=== PATIENT | male | born 1960 | race Caucasian/White ===

== ENCOUNTER 2024-05-23 08:32 | Inpatient (IN) | payer OTHER, SELFPAY ==
[2024-05-23] VITALS (14 sets, daily range): BP systolic 132–193; BP diastolic 70–90; BMI 28.8
--- NOTE | 2024-05-23 07:04 | ED.GENMED ---
History of Present Illness
General
Chief Complaint: Chest Pain
Source: patient and spouse
Exam Limitations: clinical condition
Time Seen by Provider: 05/23/24 07:03
Nursing documentation reviewed up to this point in time: agreed with
History of Present Illness
History of Present Illness:
63-year-old male with no reported chronic issues presents to the ER for evaluation of chest pain. Patient reports that he woke up around midnight with what he thought was heartburn after having pizza last night; he says he took some Tums and that
seemed to help and he went back to bed. He says that around 5 AM he woke up once again with chest pain this time associated with sweatiness that was not improving; gave him full dose aspirin and brought him to the emergency room. He denies
any associated shortness of breath, nausea, vomiting. He denies any abdominal pain. He denies any other complaints. He denies any known cardiac history and he says he has not seen a repairer controller tester for any reason.
Review of Systems
Review of Systems
All Other Systems: ROS reviewed and negative except as documented in HPI and ROS
Respiratory: Denies trouble breathing
Cardiac: Reports chest pain and diaphoresis
ABD/GI: Denies nausea or vomiting
Musculoskeletal: Denies edema
Neurological: Denies dizzy or headache
Phy Exam
Physical Exam
Physical Exam:
General: Awake, alert, oriented x3; no acute distress
Head: Normocephalic, atraumatic
Eyes: Conjunctiva normal
Throat: Airway intact, handling secretions
Neck: Trachea midline, no JVD
Lungs: Clear to auscultation bilaterally, no wheezing, rales, rhonchi
Heart: Regular rate and rhythm, no murmurs, gallops, or rubs
Abd: Soft, non distended, nontender
Neuro: No gross deficit
Extremities: No edema in extremities, equal pulses in all extremities
Scores
Heart Failure Risk
Heart Failure Risk Score: Not Applicable
Heart Score for Chest Pain Patients
STEMI patient?: Yes
Withdrawal Assessment of Alcohol
Withdrawal Assessment Completed?: Not applicable
Course
Orders/Labs/Results
Orders:
Orders
05/23/24 06:54
Electrocardiogram (*1) Urgent
Reason for Study: Chest Pain
EKG- Treatment ONCE
05/23/24 07:04
Complete Blood Count/With Diff Urgent
Comprehensive Metabolic Panel Urgent
PTT Urgent
Prothrombin Time Urgent
Troponin I Urgent
MDM/Problems Addressed
Differential Diagnosis Includes:
STEMI
MDM/Problems Addressed:
63-year-old male presents with chest pain initially had transient pain at midnight and returned at 5 AM. His EKG in triage shows inferior wall ST elevation NM. Medical Assisting Program Director activated. Case discussed with interventional cardiology who came immediately
to the bedside. Plan for cardiac catheterization. He was given aspirin prehospital; added Brilinta and heparin. Treat with nitroglycerin for hypertension and continued chest pain. Handoff to cath team.
*Pulse Oximetry
Patient hypoxic: no
*EKG
Interpreted by ED Provider?: Yes
Heart Rate: 64
Rate: normal
Rhythm: sinus
[place]: normal axis
Interval: normal interval
QRS Pattern: normal QRS
Ischemia: ST elevation
*Critical Care Note
Total Time (30-74mins, 75-104mins- exclusive of procedures): Not Applicable
Data Reviewed
Source: patient and spouse
Patient Management
Discussion with other providers: Donor Recruitment Manager (Discussed with interventional cardiology)
ED Attending Note
-
Portions of this chart may have been created with voice recognition software.� Occasional wrong word or��sound alike� substitutions may have occurred due to the inherent limitations of voice recognition software.
Discharge Plan
Departure
Patient Disposition: Admit
Date of Disposition: 05/23/24
Time of Disposition: 07:11
Admit to doctor: Srinivas
Presentation/result/management discussed w/ accepting MD/DO: Cardiology
Discharge Problem:
ST elevation (STEMI) myocardial infarction
Prescriptions:
No Action
No Current Medications
0
Interventions
Interventions:
*Risk Screen - Suicide Last Done: 05/23/24 07:04
*Neglect/Abuse Screening Last Done: 05/23/24 07:04
*ED COVID-19 Vaccine History Last Done: 05/23/24 07:04
Discharge Date and Time
Print Language: PERSIAN
[2024-05-23 07:28] LABS: INR 0.96; PT 13.1 Sec (11.4-14.6)
[2024-05-23 07:29] LABS: APTT 27.2 Sec (23.4-35.0)
[2024-05-23 07:32] LABS: ALT (SGPT) 24 U/L (0-50); AST (SGOT) 24 U/L (17-59); Albumin 4.3 g/dl (3.5-5.0); Alkaline Phosphatase 141 U/L (38-126); Blood Urea Nitrogen 16 mg/dl (9-20); Calcium 10.3 mg/dl (8.4-10.2); Carbon Dioxide 32 mmol/L (22-30); Chloride 100 mmol/L (98-107); Estimated Creatinine Clearance 84 ml/min; Glucose 159 mg/dl (70-99); Potassium 4.5 mmol/L (3.5-5.1); Sodium 138 mmol/L (135-145); Total Bilirubin 0.7 mg/dl (0.2-1.3); eGFR > 60.00
--- NOTE | 2024-05-23 07:40 | HPS.HSE ---
Family Physician
-
PCP: Monie Dodd,
CDY: None prior to admission
Chief Complaint
-
chest pain
History of Present Illness
63 y/o white male, no prior cardiac history, HLD but reports statin intolerance in the past and takes red yeast rice daily, no FH CAD, former tobacco abuse, weekly alcohol intake.
New onset chest pain/burning with indigestion last night around midnight, some relief with TUMS. Woke at 5AM with recurrent chest pain associated with diaphoresis. Took 324mg aspirin at home and came to ER.
Initial EKG with inferior ST elevations, first troponin negative. Given ticagrelor 180mg and heparin 5000u and brought emergently to blood bank laboratory technologist.
[facility] with distal RCA occlusion, s/p angioplasty with TIFFANI. Currently chest pain free.
Medical History
Past Medical History
Past Medical History: Reports Hypercholesterolemia (statin intolerant) and Other
Additional Past Medical History:
Prostate Cancer s/p prostatectomy (2020 at [facility]), dislocated shoulder joint/incomplete tear of right rotator cuff - managed with steroid injections and PT(2021), left knee osteoarthritis, left knee Wolff's Cyst
Past Surgical History: Reports Orthopedic (Right shoulder surgery as a child) and Urological (vasectomy)
Additional Past Surgical History:
prostatectomy (2021)
Social History
Tobacco: Non-smoker
Alcohol: Occasional (2-3 beers on the weekend)
Drug: None
Personal:
Living: With Family
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
Family History
Family History: Not pertinent
Allergies / Home Medications
Allergies reflects when Allergies were last updated in [facility].
Home Medications with original date entered in [facility]
Allergy/Medication List:
Allergies
Allergy/AdvReac Type Severity Reaction Status Date / Time
No Known Allergies Allergy Unverified 05/23/24 07:03
Home Medications
�Medication �Instructions �Recorded
Red Yeast Rice 1 tablet po daily 05/23/24
Review of Systems
-
History Source: Patient
A 12 point ROS was completed and negative except as noted: Yes
Physical Exam
Vital Signs
Vital Signs
Temp Pulse Resp BP Pulse Ox
98.2 F 60 16 193/90 98
05/23/24 07:04 05/23/24 07:04 05/23/24 07:04 05/23/24 07:10 05/23/24 07:04
Physical Exam
General: Well Developed and Other (deferred d/t urgent nature of MA/Cath)
Laboratory Results
-
05/23/24 07:08
Laboratory Results
PT 13.1 Sec (11.4-14.6) 05/23/24 07:08
INR 0.96 05/23/24 07:08
APTT 27.2 Sec (23.4-35.0) 05/23/24 07:08
Total Bilirubin 0.7 mg/dl (0.2-1.3) 05/23/24 07:08
AST 24 U/L (17-59) 05/23/24 07:08
ALT 24 U/L (0-50) 05/23/24 07:08
Alkaline Phosphatase 141 U/L (38-126) H 05/23/24 07:08
Laboratory Tests
05/23/24
07:08
Troponin I < 0.012
Data Reviewed
-
Medical Tests (Nuc Med, Echo, EKG etc): Image Personally Visualized and interpreted, Report Reviewed by me and Discussed with Physician
Lab Data: Labs Reviewed by me and Discussed with Physician
Old Records: Reviewed
Impression/Plan
-
PCP: Monie Dodd DO
CDY: None prior to admission
63 y/o white male, no prior cardiac history, HLD but reports statin intolerance in the past and takes red yeast rice daily, Prostate CA s/p prostatectomy (2020), no FH CAD, former tobacco abuse, weekly alcohol intake.
New onset chest pain/burning with indigestion last night around midnight, some relief with TUMS. Woke at 5AM with recurrent chest pain associated with diaphoresis. Took 324mg aspirin at home and came to ER.
Initial EKG with inferior ST elevations, first troponin negative. Given ticagrelor 180mg and heparin 5000u and brought emergently to blood bank laboratory technologist.
[facility] with distal RCA occlusion, s/p angioplasty with TIFFANI. Currently chest pain free.
IMPRESSION/PLAN:
Acute Inferior STEMI
s/p distal RCA PCI
admit ivu, monitor on tele
first troponin negative- trend to peak
echo today
DAPT w/asa, ticagrelor- CM to check cost
some bradycardia/slowing intra-cath- will hold on BB and monitor on tele for now
new start lisinopril 2.5mg/daily
cardiac rehab
followup at [facility] at discharge
HLD- reports prior history with statin intolerance
repeat lipid profile
will hold off on statin for now, consider starting repatha- will need prior auth through cardiology office
Elevated glucose- 159 this morning on chemistry
check HgbA1C today
[2024-05-23 07:41] LABS: Troponin I < 0.012 ng/ml
[2024-05-23 07:43] LABS: ACT-LR - POC 295 Seconds (116-155)
[2024-05-23 07:43] LABS: % Basophils 0.7 % (0-2); % Eosinophils 1.9 % (0-6); % Immature Granulocytes 0.6 % (0-0.5); % Monocytes 7.4 % (1.7-9.3); % Neutrophils 72.4 % (42.2-75.2); Absolute Basophils 0.1 10^3/uL (0-0.2); Absolute Eosinophils 0.2 10^3/uL (0-0.7); Absolute Immature Granulocytes 0.1 10^3/uL (0-0.05); Absolute Lymphocytes 1.6 10^3/uL (1.2-3.4); Absolute Monocytes 0.7 10^3/uL (0.1-0.6); Absolute Neutrophils 6.8 10^3/uL (1.4-6.5); Hematocrit 45.6 % (39.0-52.0); Hemoglobin 15.5 g/dL (13.0-18.0); Mean Corpuscular Hgb 29.9 pg (27.0-31.0); Mean Corpuscular Volume 87.9 fL (80.0-94.0); Mean Platelet Volume 9.6 fL (7.4-10.4); Nucleated Red Blood Cells % 0 % (-); Platelet Count 218 10^3/uL (130-400); Red Blood Cell Count 5.19 10^6/uL (4.70-6.10); Red Cell Dist. Width 12.4 % (11.5-14.5); White Blood Cell Count 9.4 10^3/uL (4.8-10.8)
[2024-05-23 07:55] LABS: ACT-LR - POC 302 Seconds (116-155)
--- NOTE | 2024-05-23 08:39 | ITS.CL.ANGIO ---
Industrial Staff Nurse - Angioplasty
Angioplasty
Procedure Report:
CARDIAC CATHETERIZATION REPORT
Date of Procedure: 05/23/2024
Referring: Ronnie Rajput Jr., M.D.
INDICATION: Inferior ST elevation myocardial infarction.
PROCEDURE:
1. Left heart catheterization.
2. Coronary angiography.
3. Successful PCI of the distal RCA.
A total of 26 minutes of procedural/moderate sedation was utilized. An independent medical office technician was present to assist with and help manage the patient's level of consciousness and physiologic status.
ACCESS:
1. 6 Austrian right radial artery using a modified Seldinger technique.
CATHETERS:
1. 5 Austrian JR4.
2. 5 Austrian JL 3.5.
3. 6 Austrian JR4 guiding catheter.
HEMODYNAMIC DATA
Weight (kg): 90.7
AO (s/d/x, mmHg): 158/83/114
LV (s/x mmHg): 158/12
LEFT VENTRICULOGRAPHY: Not performed.
CORONARY ANGIOGRAPHY
Dominance: Right.
Left Main: Large size, bifurcating vessel. There is no coronary artery disease.
LAD: Normal size vessel giving rise to 1 significant diagonal. There is a 40% lesion in the mid LAD.
[place]amus: Congenitally absent.
Circumflex: Normal size, nondominant vessel giving rise to 1 significant obtuse marginal that arises very high on the circumflex and supplies majority of the lateral wall. There is a 50-60% lesion in the proximal margin of OM1.
RCA: Normal size, dominant vessel. There is an acute occlusion of the distal RCA.
INTERVENTION(S)
1. Successful PCI of the 100% distal RCA lesion (Medtronic [place] 3.0 x 22 TIFFANI, postdilated with a 3.0 NC balloon) with reduction in stenosis to 0%, restoring CROW-3 flow.
Narrative:
The decision was made to proceed with percutaneous coronary intervention. The diagnostic catheter was removed over a wire and a 6Fr JR4 guiding catheter was advanced to the aortic root and seated in the right coronary artery. Additional heparin was
given and a Power Turn Flex wire was advanced into the distal RCA, beyond the occlusion. The 100% distal RCA lesion was predilated with a 2.0 x 12 semi-compliant balloon to 12 leah. The semi-compliant balloon was removed and a Medtronic [place]
3.0 x 22 drug-eluting stent was advanced. The stent was deployed at 12 atmospheres. The stent balloon was removed. A 3.0 x 15 noncompliant balloon was advanced into the stent and the stent was postdilated to 14 atmospheres. Angiography was performed
in orthogonal views, confirming good stent expansion and an excellent angiographic result. The coronary wire was withdrawn and the guide was disengaged from the artery. The catheter was removed over a standard J-wire.
Closure Device: Vascular band.
Radiation (mGy): 798.6
DAP (cm2.Gy): 63.1390
Fluoroscopy time (minutes): 6.0
CONCLUSIONS
1. Right dominant circulation with a 40% lesion in the mid LAD, a 50-60% lesion in the proximal circumflex and an acute, 100% occlusion of the distal RCA, status post successful PCI (Medtronic [place] 3.0 x 22 TIFFANI, postdilated with a 3.0 NC
balloon) with reduction in stenosis to 0%, restoring CROW-3 flow.
2. Normal filling pressures (LVEDP = 12 mmHg at 90.7 kg).
RECOMMENDATIONS:
1. Expectant management after cardiac catheterization via right radial approach.
2. Limited weight bearing on the right wrist for one week.
3. Dual antiplatelet therapy with aspirin and ticagrelor for at least 12 months, followed by aspirin indefinitely.
4. OMT/GDMT as hemodynamics will tolerate.
5. Echocardiogram ordered and pending.
6. Repeat cardiac catheterization in 2 days for IFR assessment of the LAD and circumflex lesions.
7. Referral to cardiac rehab.
Copy to: Brad Feliciano M.D.
Solo Espino DO, FACC, FACP
[2024-05-23] MEDS: NSS 1000 IV (08:45)
[2024-05-23 09:05] LABS: Glycohemoglobin (HgbA1c) 5.8 % (4.0-5.6)
[2024-05-23] MEDS: LOW STRENGTH ASPIRIN PO (09:53)
--- NOTE | 2024-05-23 10:22 | CM ---
Addendum entered by Roselia Vega 05/23/24 10:53:
Telephone call to [facility] to see if they have it in stock. [facility] does not have Brilinta 90 mg po in stock. COOLER TENDER to send script to [facility] so they can order it. Met with Mr. Arriaga to review co-pay. He is agreeable to the
co-pay.
Original Note:
Reviewed chart. Met with and Mrs. Arriaga to review discharge plans. He states prior to admission he resides with his spouse and son in a two story home with three steps to enter. He states he has a full flight of steps to get to his bedroom.
He states he has a full bathroom on each level. He states prior to admission he was independent with ambulation. He states he does not have any DMEin the home. He states he has a prescription plan with [facility] [employer] and uses [facility].
Medical work -up in progress. The discharge plan is return home with his spouse and daughter when medically stable.
Telephone call to [facility] [employer], ([phone]) to check on co-pay for Brilinta 90 mg po bid . His co-pay for retail is $10.00 a month and for a 90 day supply via mail order is $10.00 a month. He has commercial insurance so he an use the $5.00
co-pay card. Placed the coupon in his red discharge folder.
--- NOTE | 2024-05-23 16:49 | PTCARENOTE ---
Pt has denied pain today when asked. Trop 32.8. Pt BP 168/82. Marie Randolph aware. Lisinopril 5 mg ordered and given.
[2024-05-23] MEDS: ZESTRIL 5 MG PO (16:54)
[2024-05-23] MEDS: LOVENOX 40 MG SC (16:55)
[2024-05-23] MEDS: BRILINTA 90 MG PO (19:54)
--- NOTE | 2024-05-23 23:56 | PTCARENOTE ---
pt received at change of shift, pt seen and assessed in room. pt aox3, tele reading NSR/SB. no complaints of pain at this time. R radial c/d/i. this rn discussed poc with pt and , both verbalize understanding. call piedra within reach. continuing
to monitor at this time.
[2024-05-24] VITALS (9 sets, daily range): BP systolic 123–142; BP diastolic 60–88; BMI 28.8
[2024-05-24 04:31] LABS: Hematocrit 40.9 % (39.0-52.0); Hemoglobin 14.2 g/dL (13.0-18.0); Mean Corp Hgb Conc. 34.7 g/dL (33.0-37.0); Mean Corpuscular Hgb 30.1 pg (27.0-31.0); Mean Corpuscular Volume 86.8 fL (80.0-94.0); Mean Platelet Volume 9.4 fL (7.4-10.4); Platelet Count 195 10^3/uL (130-400); Red Blood Cell Count 4.71 10^6/uL (4.70-6.10); Red Cell Dist. Width 12.5 % (11.5-14.5); White Blood Cell Count 9.8 10^3/uL (4.8-10.8)
[2024-05-24 04:58] LABS: Blood Urea Nitrogen 15 mg/dl (9-20); Calcium 9.5 mg/dl (8.4-10.2); Carbon Dioxide 26 mmol/L (22-30); Chloride 102 mmol/L (98-107); Estimated Creatinine Clearance 84 ml/min; Glucose 123 mg/dl (70-99); HDL Cholesterol 45 mg/dl; LDL Cholesterol, Calculated 128 mg/dl; Potassium 4.4 mmol/L (3.5-5.1); Sodium 135 mmol/L (135-145); Total Cholesterol 209 mg/dl (50-199); Triglyceride 180 mg/dl (10-149); Very Low Density Lipoprotein 36 mg/dl (0-30); eGFR > 60.00
[2024-05-24 05:46] LABS: Hepatitis C Antibody Negative (Negative)
[2024-05-24] MEDS: TOPROL XL 25 MG PO (07:43)
[2024-05-24] MEDS: LOW STRENGTH ASPIRIN 81 MG PO (07:44)
[2024-05-24] MEDS: ZESTRIL 5 MG PO (07:44)
[2024-05-24] MEDS: BRILINTA 90 MG PO ×2 (07:44→19:50)
--- NOTE | 2024-05-24 09:51 | W.PN.CD ---
Today's Communication / Plan
-
NPO after midnight for cath tomorrow
Impression / Plan
-
63 y/o white male, no prior cardiac history, HLD but reports statin intolerance in the past and takes red yeast rice daily, Prostate CA s/p prostatectomy (2020), no FH CAD, former tobacco abuse, weekly alcohol intake here s/p STEMI.
Acute Inferior STEMI
s/p distal RCA PCI, plan for cath tomorrow for eval of residual CAD
DAPT w/asa, ticagrelor- CM to check cost
some bradycardia/slowing intra-cath- will hold on BB and monitor on tele for now
new start lisinopril 2.5mg/daily
cardiac rehab
starting rosuvastatin
HLD-
- restarting rosuvastatin, will likely need psck9i in future
Elevated glucose- 159 this morning on chemistry
check HgbA1C today
Subjective: Feeling well
Physical Exam
Vital Signs/Labs
Vital Signs
Temp Pulse Resp BP Pulse Ox
98.3 F 62 18 123/80 97
05/24/24 07:39 05/24/24 07:43 05/24/24 07:39 05/24/24 07:44 05/24/24 07:39
05/23/24 05/24/24 05/25/24
06:59 06:59 06:59
Actual Weight 200 lb 9.93 oz
05/24/24 04:21
05/24/24 04:21
PT 13.1 Sec (11.4-14.6) 05/23/24 07:08
INR 0.96 05/23/24 07:08
APTT 27.2 Sec (23.4-35.0) 05/23/24 07:08
Triglycerides 180 mg/dl (10-149) H 05/24/24 04:21
LDL Cholesterol, Calc 128 mg/dl 05/24/24 04:21
VLDL Cholesterol, Calc 36 mg/dl (0-30) H 05/24/24 04:21
HDL Cholesterol 45 mg/dl 05/24/24 04:21
LAB Results
05/23/24 05/23/24 05/23/24
07:08 12:23 18:17
Troponin I < 0.012 32.800 H* D 30.000 H*
05/24/24
04:21
Troponin I 12.100 H*
Physical Exam
Constitutional: No acute distress and Comfortable
EENT: Anicteric
Cardiovascular: Rhythm & rate is regular and Pedal edema is absent
Respiratory: Respiratory effort normal and Lungs clear to auscul.
GI: Soft
Neuro/Psych: AO x 3
Data Reviewed
-
Date of Service: May 24, 2024
Medical Decision Making: Reviewed Test Results
EKG: Tracing Personally Visualized and interpreted (sr)
Echo: Tracing Personally Visualized and interpreted and Report Reviewed by me
Labs: Labs Reviewed by me
--- NOTE | 2024-05-24 10:12 | PTCARENOTE ---
Pt received at change of shift. NSR/SB with occasional PVCs on tele with HR 50s-60s. R radial cath c/d/i with no complications noted, activity restrictions discussed and pt verbalizes understanding. No complaints of CP or SOB. Pt ambulating
independently without difficulty. Call piedra within reach.
--- NOTE | 2024-05-24 12:13 | CM ---
Chart reviewed. Patient is independent of ADLS, lives with his and son in a 2 STH, 3STE, 0 DME. Plan is for the patient to return home. CM to follow
[2024-05-24] MEDS: CRESTOR 5 MG PO (18:17)
[2024-05-24] MEDS: LOVENOX 40 MG SC (18:17)
--- NOTE | 2024-05-24 21:36 | PTCARENOTE ---
pt rec'd at beginning of shift ambulating freq around unit with family at their side. No c/o cp or sob with ambulation. sinus on telemetry. right radial site cas, good radial pulse. Pt aware of npo status after mn for PCI in am.
--- NOTE | 2024-05-25 02:41 | DOWNTIME ---
There was a [employer] Downtime on 05/25/2024 from 0100 to 05/25/2023 at 0235 . Downtime documentation of patient's care, including medication administrations, has been reconciled in the electronic record per guidelines. Refer to the
patient's paper chart under the miscellaneous tab to see printed paper medication records and downtime forms.
[2024-05-25 04:43] VITALS: BP 113/77
[2024-05-25 04:54] VITALS: BMI 28.2
[2024-05-25 05:09] LABS: Hematocrit 42.3 % (39.0-52.0); Hemoglobin 14.7 g/dL (13.0-18.0); Mean Corp Hgb Conc. 34.8 g/dL (33.0-37.0); Mean Corpuscular Hgb 30.3 pg (27.0-31.0); Mean Corpuscular Volume 87.2 fL (80.0-94.0); Mean Platelet Volume 9.1 fL (7.4-10.4); Platelet Count 196 10^3/uL (130-400); Red Blood Cell Count 4.85 10^6/uL (4.70-6.10); Red Cell Dist. Width 12.5 % (11.5-14.5); White Blood Cell Count 8.8 10^3/uL (4.8-10.8)
[2024-05-25 05:24] LABS: Blood Urea Nitrogen 17 mg/dl (9-20); Calcium 9.5 mg/dl (8.4-10.2); Carbon Dioxide 29 mmol/L (22-30); Chloride 101 mmol/L (98-107); Estimated Creatinine Clearance 84 ml/min; Glucose 120 mg/dl (70-99); Potassium 4.5 mmol/L (3.5-5.1); Sodium 134 mmol/L (135-145); eGFR > 60.00
[2024-05-25 07:55] VITALS: BP 118/80
[2024-05-25] MEDS: TOPROL XL 25 MG PO (08:18)
[2024-05-25] MEDS: ZESTRIL 5 MG PO (08:18)
[2024-05-25] MEDS: BRILINTA 90 MG PO ×2 (08:18→18:46)
[2024-05-25] MEDS: LOW STRENGTH ASPIRIN 81 MG PO (08:18)
[2024-05-25 10:58] VITALS: BP 138/74
--- NOTE | 2024-05-25 12:24 | CM ---
Chart reviewed. Patient is independent of ADLS, lives with his and son in a 2 STH, 3 MAXIMILIAN, 0 DME. Patient going back to the equipment operator/laborer/supervisor today for potential intervention. Plan is for the patient to return home. CM to follow
--- NOTE | 2024-05-25 12:40 | W.PN.CD ---
Today's Communication / Plan
-
Repeat cardiac catheterization to assess residual CAD for complete revascularization.
Tentative plan to proceed today.
If the procedure must be further deferred, we will opt for outpatient evaluation early next week.
Impression / Plan
-
Impression/Plan: 63 y/o male with HLD + statin intolerance (currently on red yeast rice), prostate CA s/p prostatectomy (2020) and former tobacco abuse admitted with inferior STEMI.
#Acute Inferior STEMI
-Troponin peaked at 32.8.
-s/p distal RCA PCI.
-Plan for repeat cath for evaluation of residual CAD and complete revascularization.
-Continue DAPT w/ ASA + ticagrelor.
-Some bradycardia/slowing intra-cath. BB on hold. Monitor on tele for now.
-Continue lisinopril 2.5mg daily.
-Tolerating rosuvastatin 5 mg daily.
-Cardiac rehab.
#HLD
-Chronic, previously on red yeast rice.
-Total cholesterol = 209, LDL = 128, HDL = 45, Triglycerides = 180.
-Restarting rosuvastatin, will likely need psck9i in future.
#Elevated glucose
-159 this morning on chemistry.
-HbA1c = 5.8%.
Subjective/Interval History:
Feels well.
DATA:
Cardiac Catheterization/PCI, 05/23/2024:
CONCLUSIONS
1. Right dominant circulation with a 40% lesion in the mid LAD, a 50-60% lesion in the proximal circumflex and an acute, 100% occlusion of the distal RCA, status post successful PCI (Medtronic [place] 3.0 x 22 TIFFANI, postdilated with a 3.0 NC
balloon) with reduction in stenosis to 0%, restoring CROW-3 flow.
2. Normal filling pressures (LVEDP = 12 mmHg at 90.7 kg).
Transthoracic Echocardiogram, 05/23/2024:
CONCLUSIONS
Normal left ventricular size, wall thickness and systolic function.
LV ejection fraction is 55-60% by Franco's method of discs.
No regional wall motion abnormalities are seen. Stage I diastolic dysfunction
suggestive of abnormal relaxation.
Normal right ventricular size and function.
Mild aortic regurgitation.
Estimated pulmonary artery pressure of 30 mmHg, assuming a right atrial
pressure of 3 mmHg.
No prior study available for comparison.
Physical Exam
Vital Signs/Labs
Vital Signs
Temp Pulse Resp BP Pulse Ox
36.8 C 60 18 138/74 96
05/25/24 10:58 05/25/24 11:00 05/25/24 10:58 05/25/24 10:58 05/25/24 10:58
05/24/24 05/25/24 05/26/24
11:59 11:59 11:59
Actual Weight 91 kg 89.1 kg
05/25/24 04:52
05/25/24 04:52
PT 13.1 Sec (11.4-14.6) 05/23/24 07:08
INR 0.96 05/23/24 07:08
APTT 27.2 Sec (23.4-35.0) 05/23/24 07:08
Triglycerides 180 mg/dl (10-149) H 05/24/24 04:21
LDL Cholesterol, Calc 128 mg/dl 05/24/24 04:21
VLDL Cholesterol, Calc 36 mg/dl (0-30) H 05/24/24 04:21
HDL Cholesterol 45 mg/dl 05/24/24 04:21
LAB Results
05/23/24 05/23/24 05/23/24
07:08 12:23 18:17
Troponin I < 0.012 32.800 H* D 30.000 H*
05/24/24
04:21
Troponin I 12.100 H*
Physical Exam
Constitutional: No acute distress and Comfortable
EENT: Anicteric and Moist mucous membranes
Cardiovascular: Rhythm & rate is regular, Pedal edema is absent, S1S2 is normal and Murmur/rub/gallop absent
Respiratory: Respiratory effort normal, Lungs clear to auscul., Wheeze Absent, Crackles Absent and Rhonchi Absent
GI: Soft, Distention absent, Flat, Non tender and Normal bowel sounds
Neuro/Psych: AO x 3
Other: Cath Site (Right radial access site is C/D/I.)
Data Reviewed
-
Date of Service: May 25, 2024
Medical Decision Making: Reviewed Test Results, Independent Historian Assessment and Test Interpretation
EKG: Tracing Personally Visualized and interpreted and Report Reviewed by me
Echo: Report Reviewed by me
X-Ray/CT/US/MRI/NUC/PET: Image Personally Visualized and interpreted and Report Reviewed by me
Medical Tests (PFT, Pathology etc): Image Personally Visualized and interpreted and Report Reviewed by me
Labs: Labs Reviewed by me
Old Records: Reviewed
--- NOTE | 2024-05-25 12:45 | PTCARENOTE ---
Pt remains in NSR with HR 60s-70s. R radial cath site DOUGLAS with no complications noted. No complaints of CP. Ambulating independently in halls without difficulty. Plan of care discussed with pt and family. NPO for cardiac cath today.
[2024-05-25 14:43] LABS: ACT-LR - POC 356 Seconds (116-155)
--- NOTE | 2024-05-25 14:56 | ITS.CL.CATH ---
[employer] - Catheterization
Cardiac Catheterization
Procedure Report:
CARDIAC CATHETERIZATION REPORT
Date of Procedure: 05/25/2024
Referring: Solo Espino D.O.
INDICATION: Staged ischemic evaluation after STEMI.
PROCEDURE:
1. Left-sided coronary angiography.
2. Successful IFR of the circumflex.
3. Successful IFR of the mid LAD.
A total of 32 minutes of procedural/moderate sedation was utilized. An independent emergency medical technician basic was present to assist with and help manage the patient's level of consciousness and physiologic status.
ACCESS:
1. 6 Belgian right rate artery using a modified Seldinger technique.
CATHETERS:
1. 6 Belgian EBU 3.5 guiding catheter.
HEMODYNAMIC DATA
Weight (kg): 90.7
AO (s/d/x, mmHg): 123/72/93
LV (s/x mmHg): Not obtained.
LEFT VENTRICULOGRAPHY: Not performed.
CORONARY ANGIOGRAPHY
Dominance: Right.
Left Main: Normal size, bifurcating vessel. There is no coronary artery disease.
LAD: Normal size vessel giving rise to 1 significant diagonal. There is a 50% lesion in the mid vessel after an area of tortuosity.
Ramus: Congenitally absent.
Circumflex: Normal size, nondominant vessel giving rise to 1 significant obtuse marginal before terminating as a left posterolateral branch. There is a 70% lesion in the proximal third of the first obtuse marginal.
RCA: Not injected. Known to be a dominant vessel status post PCI to the distal margin.
INTERVENTION(S)
1. Successful IFR of the 70% proximal OM1 lesion, demonstrating nonocclusive disease (IFR = 0.96).
2. Successful IFR of the 50% mid LAD lesion, demonstrating nonocclusive disease (IFR = 0.98).
Narrative:
The decision was made to perform physiologic testing. The 6 Belgian EBU 3.5 guiding catheter was advanced into the ascending aorta and seated in the left main coronary artery. Additional heparin was given to obtain an ACT greater than 250 seconds.
An iFR wire was zeroed outside of the body, then inserted into the guiding sheath. The wire was advanced and the transducer was normalized just outside of the guiding catheter tip. The wire was advanced into the distal obtuse marginal. Three iFR
measurements were taken. The lesion was initially determined to be occlusive (0.87). On pullback, it became clear that there had been significant drift on the IFR wire pressure gauge. The wire was rezeroed and the wire was readvanced into the
obtuse marginal and the IFR was repeated. This time, the IFR demonstrated nonocclusive disease at 0.96. Pullback of the IFR wire showed fidelity of pressure tracing.
We then turned our attention to the 50% mid LAD lesion. The IFR wire was renormalized after being directed into the LAD. The wire was advanced into the mid LAD, beyond the 50% lesion. Three iFR measurements were obtained. The lesion was
determined to be nonocclusive (IFR = 0.98). Wire pullback demonstrated fidelity of measurement. The wire was withdrawn and the catheter was disengaged.
Closure Device: Vascular band.
Radiation (mGy): 253.01
DAP (cm2.Gy): 20.7873
Fluoroscopy time (minutes): 4.5
CONCLUSIONS
1. Right dominant circulation status post prior PCI to the distal RCA with a nonocclusive 50% mid LAD lesion (IFR = 0.98) and a nonocclusive 70% proximal OM1 lesion (IFR = 0.96).
RECOMMENDATIONS:
1. Expectant management after cardiac catheterization via right radial approach.
2. Limited weight bearing on the right wrist for one week.
3. Maintain dual antiplatelet therapy with aspirin and ticagrelor for at least 12 months, followed by aspirin indefinitely.
4. OMT/GDMT as hemodynamics will tolerate.
5. Currently tolerating rosuvastatin 5 mg daily due to prior statin intolerance. He will require PCSK9 inhibitors as an outpatient. Goal LDL <55.
6. Stable for outpatient follow-up.
Copy to: Solo Espino D.O., Brad Feliciano M.D.
Solo Espino DO, FACC, FACP
[2024-05-25 15:01] VITALS: BP 123/74
[2024-05-25 15:15] VITALS: BP 117/79
[2024-05-25 15:30] VITALS: BP 105/68
--- NOTE | 2024-05-25 16:10 | W.DS.TRANS ---
DC Summary - [employer]
-
Discharge Instructions:
Discharge Diagnosis/Procedures STEMI, s/p angioplasty and stent to Right
Coronary artery (05/23), IFR testing negative for
LAD and Left circumflex arteries (05/25)
Diet Low Cholesterol
Activity No strenuous activity
Additional Activity NO work for 1 week
Driving Restrictions No driving for 24 hours
Other Services Cardiac Rehab
Instructions:
Stand-Alone Forms: DC Instructions- Cath/EP Lab
Return to Work
Changes to Home Medications: Yes
Discharge Medications:
DC Medications w/original date entered in [facility]
ticagrelor 90 mg tablet (Brilinta) 90 mg PO BID #180 tabs 05/23/24
aspirin 81 mg chewable tablet 81 mg PO DAILY #1 tab 05/25/24
lisinopril 5 mg tablet 5 mg PO DAILY #90 tabs 05/25/24
metoprolol succinate 25 mg tablet,extended release 24 hr 25 mg PO DAILY #90 tabs 05/25/24
nitroglycerin 0.4 mg sublingual tablet 0.4 mg sublingual [id number] PRN chest pain #25 tabs 05/25/24
rosuvastatin 10 mg tablet 5 mg (1/2 x 10 mg) PO QPM #90 tabs 05/25/24
Home Medication Changes
all new, stopped RYR
Pending Results: No
[2024-05-25] MEDS: PREVNAR 20 0.5 ML IM (18:46)
[2024-05-25] MEDS: CRESTOR 5 MG PO (18:46)
--- NOTE | 2024-05-25 18:59 | PTCARENOTE ---
Patient discharged home with . Discharge instructions reviewed and read aloud by patient who verbalizes understanding of restrictions and new medications. Prevnar vaccine administered, see MAR. IV and tele removed.
== END 2024-05-25 19:02 | disposition home or self-care (01) | DRG 322 ==
LOC: IVU 08:32
PROVIDERS: Nurse Practitioner; ADMITTING PHYSICIAN Internal Medicine Cardiovascular Disease; EMERGENCY PHYSICIAN Emergency Medicine; FAMILY PHYSICIAN Family Medicine
PROC: B2111ZZ Fluoroscopy of Multiple Coronary Arteries using Low Osmolar Contrast (ICD-10-PCS; 2024-05-23)
PROC: 4A023N7 Measurement of Cardiac Sampling and Pressure, Left Heart, Percutaneous Approach (ICD-10-PCS; 2024-05-23)
PROC: 027034Z Dilation of Coronary Artery, One Artery with Drug-eluting Intraluminal Device, Percutaneous Approach (ICD-10-PCS; 2024-05-23)
PROC: 4A033BC Measurement of Arterial Pressure, Coronary, Percutaneous Approach (ICD-10-PCS; 2024-05-25)
PROC: 3E0234Z Introduction of Serum, Toxoid and Vaccine into Muscle, Percutaneous Approach (ICD-10-PCS; 2024-05-25)
DX: I21.19 ST elevation (STEMI) myocardial infarction involving other coronary artery of inferior wall (principal); E78.00 Pure hypercholesterolemia, unspecified; I25.82 Chronic total occlusion of coronary artery; I25.10 Atherosclerotic heart disease of native coronary artery without angina pectoris; Z85.46 Personal history of malignant neoplasm of prostate; Z90.79 Acquired absence of other genital organ(s); M17.12 Unilateral primary osteoarthritis, left knee; Z23 Encounter for immunization
CPT/HCPCS: 80048; 80053; 80061; 83036; 84484; 85025; 85027; 85347; 85610; 85730; 86803; 90677; 93005; 93306; 93454; 93458; 93799; 99152; 99153; 99285; C1725; C1769; C1874; C1894; C9606; G0009; Q9967

== ENCOUNTER 2024-06-29 16:22 | Outpatient (RCR) | payer OTHER, SELFPAY | END 2024-06-29 23:59 | disposition home or self-care (01) | LOC: CRHB 16:22 | PROVIDERS: ATTENDING PHYSICIAN Internal Medicine Cardiovascular Disease | DX: I25.2 Old myocardial infarction (principal); I21.01 ST elevation (STEMI) myocardial infarction involving left main coronary artery (principal); I25.10 Atherosclerotic heart disease of native coronary artery without angina pectoris; Z95.5 Presence of coronary angioplasty implant and graft | CPT/HCPCS: 93798; G0422; G0423 ==